=== PATIENT | female | born 1965 | race African-American/Black ===

== ENCOUNTER 2018-12-30 23:16 | Emergency (ER) | payer MEDICAID ==
[~2018-12-30] VITALS: Ht 167.6 cm; Wt 73.0 kg
[2018-12-31 00:03] LABS: BASOPHILS % 0.9 % (0.0-2.0); EOSINOPHILS % 1.8 % (0.0-5.0); HEMATOCRIT. 38.1 % (36.0-48.0); HEMOGLOBIN. 12.7 g/dL (12.0-16.0); LYMPHOCYTES % 47.6 % (20.0-50.0); MEAN CORPUSCULAR HEMOGLOBIN 29.4 pg (28.0-32.0); MEAN PLATELET VOLUME 7.9 fl (7.4-10.4); MONOCYTES % 12.5 % (2.0-8.0); NEUTROPHILS % 37.2 % (40.0-76.0); PLATELET 268 x1000/uL (130-400); RED BLOOD CELL COUNT 4.33 mill/uL (4.2-5.4)
[2018-12-31 00:09] LABS: CHLORIDE 109 mEq/L (98-107)
[2018-12-31 00:12] LABS: HCG SCREEN NEGATIVE
[2018-12-31 00:14] LABS: ETHANOL BLOOD < 10 mg/dL
[2018-12-31] MEDS: FAMOTIDINE 20MG/2ML VIAL IV STA (00:22)
[2018-12-31] MEDS: ONDANSETRON HCL 4MG/2ML INJ IV STA (00:22)
[2018-12-31] MEDS: SODIUM CHLORIDE 0.9% 1,000 ML IV ONE (00:22)
[2018-12-31] MEDS: MORPHINE SULFATE 4 MG/ML CPJ (NOT FOR IM USE) IV STA (00:23)
[2018-12-31 01:19] LABS: CLARITY URINE CLEAR (CLEAR); COLOR URINE YELLOW (YELLOW); KETONES URINE NEGATIVE (NEGATIVE); LEUKOCYTE ESTERASE URINE 1+ (NEGATIVE); NITRITE URINE NEGATIVE (NEGATIVE); OCCULT BLOOD URINE NEGATIVE (NEGATIVE); PH URINE 5.5 (4.5-8.0); PROTEIN URINE NEGATIVE (NEGATIVE); UROBILINOGEN URINE 0.2 E.U./dL (0.2-1.0)
[2018-12-31 01:29] LABS: *AMPHETAMINES SCREEN URINE NEGATIVE (NEGATIVE); *BARBITURATES SCREEN URINE NEGATIVE (NEGATIVE); *BENZODIAZEPINES SCREEN URINE PRESUMTIVE POSITIVE (NEGATIVE); *COCAINE SCREEN URINE PRESUMTIVE POSITIVE (NEGATIVE); CANNABINOID URINE SCREEN NEGATIVE (NEGATIVE); METHADONE URINE SCREEN NEGATIVE (NEGATIVE); OPIATES URINE SCREEN NEGATIVE (NEGATIVE); PHENCYCLIDINE URINE SCREEN NEGATIVE (NEGATIVE)
[2018-12-31] MEDS ORDERED: IOHEXOL-300 100 ML BOTTLE ONE (01:54)
[2018-12-31 06:47] VITALS: BP 126/79
== END 2018-12-31 06:52 | disposition home or self-care (01) ==
LOC: ER 23:24
DX: T39.1X2A Poisoning by 4-Aminophenol derivatives, intentional self-harm, initial encounter (principal); R10.13 Epigastric pain; Y92.89 Other specified places as the place of occurrence of the external cause; F20.9 Schizophrenia, unspecified; Z88.0 Allergy status to penicillin; Z88.6 Allergy status to analgesic agent
CPT/HCPCS: 36415; 74177; 80053; 80305; 80307; 80320; 80329; 81003; 83605; 83690; 84703; 85025; 93005; 96374; 96375; 99284; J2270; J2405; J3490; J7030; Q9967; G0480